=== PATIENT | male | born 1950 | race Caucasian/White ===

== ENCOUNTER 2023-01-09 09:50 | Outpatient (CLI) | payer MEDICARE, SELFPAY ==
[2023-01-09 10:39] LABS: Hematocrit 41.3 % (42.0-52.0); Mean Corpuscular HGB Conc 31.5 g/dl (32-36); Mean Corpuscular Hemoglobin 27.6 pg (26-34); Mean Corpuscular Volume 87.7 fl (80-100); Mean Platelet Volume 10.5 fl (7.4-10.4); Platelet Count Result 272 k/mm3 (150-375); Red Blood Count 4.71 M/mm3 (4.6-6.20); Red Cell Distribution Width 13.9 % (11.5-14.5); White Blood Count 6.4 K/mm3 (4.5-10.0)
[2023-01-09 10:52] LABS: Alanine Aminotransferase 22 U/L (6-50); Albumin Level 4.4 g/dL (3.5-5.1); Alkaline Phosphatase 52 U/L (38-126); Anion Gap 9 mmol/L (8-16); Aspartate Amino Transferase 25 U/L (17-59); Bilirubin,Total 0.8 mg/dL (0.2-1.3); Blood Urea Nitrogen 18 mg/dL (9-20); CRP < 0.5 mg/dL (<1.0); Carbon Dioxide 24 mmol/L (22-30); Chloride 105 mmol/L (98-107); Estimated Glomerular Filt Rate > 60; Glucose 82 mg/dL (65-110); Potassium 4.6 mmol/L (3.4-5.0); Sodium 138 mmol/L (137-145)
[2023-01-09 11:58] LABS: Erythrocyte Sedimentation Rate 8 mm/hr (0-20)
[2023-01-11 14:03] LABS: NIL 0.01 IU/mL; Quantiferon TB Plus, 1T NEGATIVE (NEGATIVE)
[2023-01-18 19:27] LABS: Calprotectin, Stool 46 mcg/g
== END 2023-01-09 09:51 | disposition home or self-care (01) ==
PROVIDERS: Visit Provider Nurse Practitioner Family
DX: K50.90 Crohn's disease, unspecified, without complications (principal); R19.7 Diarrhea, unspecified
CPT/HCPCS: 36415; 80053; 83993; 85027; 85652; 86140; 86480; 87045; 87269; 87427

== ENCOUNTER 2023-02-12 00:09 | Day surgery (SDC) | payer MEDICARE, SELFPAY ==
[2023-01-27 13:54] VITALS: BMI 25.9
--- NOTE | 2023-02-11 16:29 | PM.HPGS ---
History of Present Illness History of Present Illness Consent: Risks, benefits, and alternatives have been discussed and questions answered. Patient agrees to proceed with procedure. Chief complaint: diarrhea, Schreiber's Esophagus, Crohn's Disease Narrative: Franki Fuentes is a 73 year old male who is due for surveillance for Schreiber's esophagus and for Crohn's disease.In 2018, he was on azathioprine 100 mg daily which seem to be controlling the crohns but states he has not taken it in several years. For the past couple of years with multiple loose stools daily with urgency and occasional night time awakenings. He reports mid abdominal cramping and lower right quadrant discomfort. States he will stop eating if the diarrhea gets to bad and this seems to help. He rarely has formed stools. He denies any nausea, vomiting, fevers or bloody stools. weight is stable.? Review of Systems Review of Systems: All systems reviewed & are unremarkable except as noted in HPI and below PMFSH Past Medical History Medical History Anemia Schreiber esophagus COPD (chronic obstructive pulmonary disease) Crohn's disease GERD (gastroesophageal reflux disease) HLD (hyperlipidemia) HTN (hypertension) Surgical History Surgical History (Updated 01/09/23 @ 08:39 by ANTONIETA Richard) H/O total knee replacement History of colon resection Social History Social History Smoking status: Former smoker Tobacco type: cigarettes Meds Home Medications and Allergies Home Medications Medication Instructions Recorded Confirmed Type cyanocobalamin (vitamin B-12) 100 mcg subcut MONTHLY 01/09/23 01/27/23 History 1,000 mcg/mL injection solution esomeprazole magnesium 40 mg 40 mg PO DAILY 01/09/23 01/27/23 History capsule,delayed release fenofibrate 120 mg tablet 120 mg PO DAILY 01/09/23 01/27/23 History losartan 100 mg tablet 100 mg PO DAILY 01/09/23 01/27/23 History pravastatin 20 mg tablet 20 mg PO DAILY 01/09/23 01/27/23 History cholestyramine (with sugar) 4 gram 4 g PO BID diarrhea #368.76 grams 01/22/23 01/27/23 Rx oral powder (Questran) amlodipine 2.5 mg tablet 5 mg PO DAILY 01/27/23 01/27/23 History Allergies Allergy/AdvReac Type Severity Reaction Status Date / Time No Known Allergies Allergy Unknown Verified 02/12/23 07:46 Exam Const: General: alert Orientation/consciousness: patient oriented x3 Resp: Auscultation: clear to auscultation bilaterally Cardio: Rhythm: regular rhythm GI: GI Palp: Yes Soft to palpation and No Tenderness to palpation present (GI) Neuro: General: patient oriented x3 Assessment and Plan Assessment and plan (1) Schreiber esophagus: Code(s): K22.70 - Schreiber's esophagus without dysplasia Status: Acute Assessment and Plan: EGD with possible biopsy or dilatation or cautery. (2) Crohn's disease: Code(s): K50.90 - Crohn's disease, unspecified, without complications Status: Acute Plan Colonoscopy with possible biopsy or polypectomy or cautery or injection of substances.
[2023-02-12 07:48] VITALS: BP 139/51; PULSE 75; RESP 20; TEMP 36.1; O2SAT 98
[2023-02-12] MEDS: LACTATED RINGERS 1,000 ML 150 ML IV CONT (08:04)
[2023-02-12] MEDS: AMPICILLIN 2 GM/NS 100 ML 2 GM/100 ML BAG IVPB (08:06)
--- NOTE | 2023-02-12 08:36 | P.PNAN_ITS ---
Anes - Initial Pre Proc Eval Procedure: Operation Date: 02/12/23 09:00 Proposed Procedures p Esophagogastroduodenoscopy & Colonoscopy - Sathya José MD Date/Time: 02/12/23 08:36 Surgeon: Sathya José MD Pre Op Diagnosis: diarrhea, Schreiber's Esophagus, Crohn's Disease Patient Data Age: 73 Gender: M Height: 1.75 m Weight: 72.8 kg Last Vital Signs Temp 97 F L 02/12/23 07:48 Pulse 75 02/12/23 07:48 Resp 20 02/12/23 07:48 BP 139/51 L 02/12/23 07:48 Pulse Ox 98 02/12/23 07:48 Allergies Allergy/AdvReac Type Severity Reaction Status Date / Time No Known Allergies Allergy Unknown Verified 02/12/23 07:46 Home Medications Medication Instructions Recorded Confirmed Type cyanocobalamin (vitamin B-12) 100 mcg subcut MONTHLY 01/09/23 01/27/23 History 1,000 mcg/mL injection solution esomeprazole magnesium 40 mg 40 mg PO DAILY 01/09/23 01/27/23 History capsule,delayed release fenofibrate 120 mg tablet 120 mg PO DAILY 01/09/23 01/27/23 History losartan 100 mg tablet 100 mg PO DAILY 01/09/23 01/27/23 History pravastatin 20 mg tablet 20 mg PO DAILY 01/09/23 01/27/23 History cholestyramine (with sugar) 4 gram 4 g PO BID diarrhea #368.76 grams 01/22/23 01/27/23 Rx oral powder (Questran) amlodipine 2.5 mg tablet 5 mg PO DAILY 01/27/23 01/27/23 History Patient hx anesthesia problems: none Family hx anesthesia problems: none Results Review: All pre-operative results and documents have been reviewed as part of the pre- operative evaluation. [facility] Past Medical History Medical History Anemia Schreiber esophagus COPD (chronic obstructive pulmonary disease) Crohn's disease GERD (gastroesophageal reflux disease) HLD (hyperlipidemia) HTN (hypertension) Surgical History Surgical History (Updated 01/09/23 @ 08:39 by ANTONIETA Richard) H/O total knee replacement History of colon resection Social History Social History Smoking status: Former smoker Tobacco type: cigarettes Anes - Eval Final PreProcedure Day of Procedure 02/12/23 08:36 Patient weight: normal Heart: regular rate and rhythm Lungs: clear to auscultation Airway: Mallampati scale class II Neurological: alert and oriented Last oral intake: >/= 8 hours ASA classification: III Emergent: no Anesthetic plan: proceed Anesthesia type and monitoring: general GIVS and standard monitoring Results Review: All pre-operative results and documents have been reviewed as part of the pre- operative evaluation. Informed Consent: The patient's anesthetic plan and its attendant risks and benefits were discussed with the patient/family/POA. Questions were solicited and answers p rovided to the satisfaction of the patient/family/POA.
--- NOTE | 2023-02-12 08:57 | SUR.OPER ---
EGD start 850 end 854, Colonoscopy start 901 end 911
[2023-02-12 09:17] VITALS: BP 93/53; PULSE 58; RESP 13; O2SAT 100
[2023-02-12 09:27] VITALS: BP 97/52; PULSE 56; O2SAT 100
[2023-02-12 09:37] VITALS: BP 153/72; PULSE 64; O2SAT 100
== END 2023-02-12 09:47 | disposition home or self-care (01) ==
PROVIDERS: Visit Provider Internal Medicine Gastroenterology
PROC: 0DJ08ZZ Inspection of Upper Intestinal Tract, Via Natural or Artificial Opening Endoscopic (ICD-10-PCS; CPT 43235; principal; 2023-02-12 09:00)
DX: R19.7 Diarrhea, unspecified (principal); K50.90 Crohn's disease, unspecified, without complications; K22.70 Barrett's esophagus without dysplasia; K63.89 Other specified diseases of intestine; K21.9 Gastro-esophageal reflux disease without esophagitis; E78.5 Hyperlipidemia, unspecified; I10 Essential (primary) hypertension; Z87.891 Personal history of nicotine dependence
CPT/HCPCS: 43239; 45378; 88305; J0290; J2704; J7120